=== PATIENT | female | born 2000 | race Caucasian/White ===

== ENCOUNTER → 2019-07-22 08:33 | Outpatient (CLI) | payer BC, SELFPAY ==
--- NOTE | 2019-07-22 08:42 | US_ITS ---
PROCEDURE: US GALLBLADDER CLINICAL INDICATION: ACUTE CHOLECYSTITIS COMPARISON: CT ABDOMEN PELVIS W CON from 07/12/2019 FINDINGS: Pancreas: Unremarkable/Not well seen Liver: Unremarkable. There is appropriate direction of blood flow within a non dilated portal vein. Right kidney: Unremarkable appearing. No hydronephrosis. Gallbladder: The gallbladder is contracted with gallstones noted. There is mild gallbladder wall thickening measuring up to 4 mm. No pericholecystic fluid or biliary dilatation is evident. IMPRESSION: Cholelithiasis with contracted gallbladder and mild gallbladder wall thickening Dictated by: Gareth Cavazos MD 07/22/2019 09:56 Electronically signed by Gareth Cavazos MD in [place] 07/22/2019 09:56
== END ==
PROVIDERS: PCP Internal Medicine Adolescent Medicine; Visit Provider Internal Medicine Adolescent Medicine
DX: K81.0 Acute cholecystitis (principal)
CPT/HCPCS: 76705

== ENCOUNTER → 2019-07-22 11:24 | Outpatient (CLI) | payer BC, SELFPAY ==
[2019-07-22 12:10] LABS: Basophils # 0.1 K/mm3 (0-0.2); Basophils % 0.6 % (0.1-2.0); Eosinophils # 0.1 K/mm3 (0.0-0.4); Eosinophils % 1.5 % (0.1-12.0); Hematocrit 42.4 % (37.0-47.0); Hemoglobin 14.4 g/dL (12.2-16.2); Lymphocytes # 2.1 K/mm3 (0.7-4.5); Lymphocytes % 21.7 % (10-50); Mean Corpuscular HGB Conc 34.1 g/dL (31.8-35.4); Mean Corpuscular Hemoglobin 29.4 pg (27.0-31.2); Mean Corpuscular Volume 86.3 fl (81-99); Mean Platelet Volume 8.1 fl (7.4-10.4); Monocytes # 0.6 K/mm3 (0.1-1.0); Monocytes % 6.4 % (1.7-9.3); Neutrophils # 6.8 K/mm3 (1.8-7.8); Neutrophils % 69.8 % (37.0-80.0); Platelet Count 241 K/mm3 (142-424); Red Blood Count 4.91 M/mm3 (4.20-5.40); White Blood Count 9.7 K/mm3 (4.5-13.0)
[2019-07-22 13:20] LABS: HCG Qualitative, Serum Negative (Negative)
== END ==
PROVIDERS: Visit Provider Surgery
DX: Z01.818 Encounter for other preprocedural examination (principal); K82.9 Disease of gallbladder, unspecified
CPT/HCPCS: 36415; 84703; 85025

== ENCOUNTER 2021-12-24 14:14 | Emergency (ER) | payer SELFPAY ==
[2021-12-24 15:00] VITALS: BP 110/71; PULSE 89; RESP 19; TEMP 36.9; O2SAT 96; BMI 37.9
--- NOTE | 2021-12-24 15:39 | HMH.EDUTC ---
[facility] [place] Disposition Clinical Impression: Viral upper respiratory tract infection with cough Disposition: Home, Self-Care Condition on Discharge: Good Instructions: Cough, DI for COVID-19 (Suspected or Confirmed ), Preventing the Spread of Coronavirus Discharge Instructions Additional Instructions: *Monitor Temp, Over the counter Motrin or Tylenol as directed/as needed Tylenol every 4 hours and Motrin every 6 hours (as long as your family doctor has told you that you can take it) for fever or pain. and straight to ER if unable to lower temp less than 101.0 after medication given *Warm salt water gargles may help to soothe the throat *Throat Lozenges *Warm fluids like tea with honey may help to soothe the throat *Sleep elevated *Humidifier/Vaporizer Follow up IMMEDIATELY for new or worsening symptoms or no Noticeable improvement over the next 48-72 hours. 911 for difficulty breathing or swallowing You were tested for today for COVID19 your test result should be back in the next 24-48 hours, you may Check your results on the [facility] My Health portal Make sure to take your Vitamins Vit. C Vit D and Zinc if you can take them Referrals: Beltran Hernandez MD [Primary Care Provider] - As needed Time of Disposition: 15:41 Medical Decision Making - Jaya Inquiry Pt receiving controlled substance: No Jaya was queried for this patient: No Vital Signs: 12/24/21 15:00 Temperature 98.5 F Temperature Source Oral Pulse Rate [Right Brachial] 89 Respiratory Rate 19 Blood Pressure [Right Arm] 110/71 Blood Pressure Mean [Right Arm] 84 Blood Pressure Source [Right Arm] Automatic Cuff Blood Pressure Position [Right Arm] Sitting 02 Sat by Pulse Oximetry 96 Oxygen Delivery Method Room Air Orders (Tests/Meds): ORDERS Category Date Time Status Covid-19 Nasal PCR ([facility]) Routine Lab 12/24/21 14:50 Received [facility] [place] HPI - General Stated complaint: covid test, body aches, cough, congestion Time Seen by Provider: 12/24/21 15:39 Mode of Arrival: Ambulatory Source of Information: Patient Limitations: No Limitations Description of Symptoms (Recalled from Triage Doc. by RN): PATIENT C/O COUGH, BODY ACHES, CONGESTION, AND FATIGUE X 2 DAYS HEENT Symptoms (Recalled from RN notes): Yes Resp Symptoms (Recalled from RN notes): Yes Skin Symptoms (Recalled from RN notes): No MS Symptoms (Recalled from RN notes): No Functional Status (Recalled from RN notes): WNL - History of Present Illness Provider Complaint: Patient states she has been around her boyfriend that is sick too States that she has been having body aches, chills, fever and fatigue so she wanted to come in and get tested for COVID - Related Data Previous Rx's Medication Instructions Recorded Hydrocod/Acet 5/325 mg [[place] 1 - 2 tab PO Q6HP PRN #23 tab 07/24/19 5/325mg tablet] Allergies Allergy/AdvReac Type Severity Reaction Status Date / Time Sulfa (Sulfonamide Allergy Verified 07/24/19 09:47 Antibiotics) - Worker's Comp Is this a Worker's Comp case?: No [facility] History - Hepatitis A Screen Attestation statement:: This patient has been screened for Hepatitis A risk factors. I have reviewed the patient's past medical history: Yes Medical History: Denies:: Cancer, Diabetes Mellitus Type 1, Diabetes Mellitus Type 2, Internal Pacemaker, MRSA, Seizures Other Medical History: Denies: Blood Transfusion Reaction Comment: obesity, Other Surgeries: Yes: No Previous Surgery. 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
[2021-12-24 15:43] VITALS: BP 110/71; PULSE 89; RESP 19; TEMP 36.9; O2SAT 96
== END 2021-12-24 15:46 | disposition home or self-care (01) ==
PROVIDERS: Emergency Provider Nurse Practitioner; PCP Internal Medicine Adolescent Medicine
DX: U07.1 COVID-19 (principal); F17.210 Nicotine dependence, cigarettes, uncomplicated
CPT/HCPCS: 99212; C9803; G0463; U0003; U0005

== ENCOUNTER 2023-03-20 04:28 | Emergency (ER) | payer SELFPAY ==
[2023-03-20 04:29] VITALS: BP 127/84; PULSE 78; RESP 16; TEMP 36.5; O2SAT 98; BMI 32.8
[2023-03-20 04:43] VITALS: BP 126/80
[2023-03-20 04:44] LABS: Microscopic, Urine URINE MICROSCOPIC (MICROSCOPIC)
--- NOTE | 2023-03-20 04:46 | HMH.EDGENADL ---
Discharge Plan Disposition Patient Disposition: Home, Self-Care Chief Complaint: Abdominal Pain Referrals Follow up/Referrals: Beltran Hernandez MD [Primary Care Provider] - See instructions Activity Restrictions/Add. Instructions Additional Instructions/Restrictions: Call your family doctor to establish care for this visit to the emergency department and schedule follow-up within 48 hours to ensure improvement. If you have any worsening of your condition or any other concerning signs or symptoms, return to the emergency department or your primary care doctor for further evaluation. Take Tylenol 1000 mg every 6 hours (4 times daily) and ibuprofen 400 mg every 6 hours (4 times daily) as needed with food and water to prevent GI upset and kidney damage. Clinical Impressions Clinical Impression: Abdominal pain Instructions Patient Instructions: DI for Acute Abdominal Pain Discharge ED Provider: Patrick Berumen General Adult HPI General Chief complaint: Abdominal Pain Stated complaint: Stomach pain no vomiting Time Seen by Provider: 03/20/23 04:30 Mode of Arrival: Ambulatory Source of Information: Patient Limitations: No Limitations Description of Symptoms (Recalled from ER Triage Doc. by RN): pt c/o LLQ abdominal pain, onset 03/19 @ 2330, LMP 2 weeks ago, denies possibility of being History of Present Illness HPI narrative: 22-year-old female history of cholecystectomy presenting with abdominal pain. Patient states abdominal pain started right around midnight when she was in the car getting food. Sudden onset, left lower quadrant, stabbing, intermittent. Radiates upward toward her left ribs. No nausea or vomiting, fevers or chills, overlying skin changes, dysuria, hematuria, other urinary symptoms, vaginal discharge or bleeding. Last menstrual period was 2 weeks prior and was normal for her. Last bowel movement yesterday, 03/19 and normal for her as well. Related Data Allergies Allergy/AdvReac Type Severity Reaction Status Date / Time Sulfa (Sulfonamide Allergy Verified 03/20/23 04:48 Antibiotics) [facility] Disclaimer: The information contained in this section may have been updated after the patient was seen, as this information can be updated by other users. Social History Smoking Status: Never smoker alcohol intake: never substance use type: marijuana current occupational status: unemployed Travel in the last 8 weeks: None housing: house caffeine: No ROS Obtained: Yes All systems reviewed & no additional complaints except as documented Physical Exam General General appearance: alert, in no apparent distress and obese Head Head exam: atraumatic and normocephalic Eye Eye exam: Present normal appearance, PERRL and EOMI ENT ENT exam: Present mucous membranes moist Neck Neck exam: Present normal inspection, full ROM and trachea midline Respiratory Respiratory exam: Absent respiratory distress, wheezes, stridor, accessory muscle use or prolonged expiratory phase Cardiovascular Cardiovascular exam: Present regular rate and normal rhythm Abdominal Exam Abdominal exam: Present soft; Absent distention, tenderness, guarding, rebound, rigidity or normal bowel sounds Neurological Exam Neurological exam: Present alert, oriented X3, CN II-XII intact and normal gait; Absent motor sensory deficit Skin Skin exam: Present warm and dry; Absent diaphoresis or erythema Medical Decision Making Medical Records Medical records reviewed: Yes I reviewed the patient's medical records. Jaya Inquiry Pt receiving controlled substance: No Jaya was queried for this patient: No Vital Signs: 03/20/23 04:29 03/20/23 04:43 Temperature 97.7 F Temperature Source Oral Pulse Rate [Left Radial] 78 Respiratory Rate 16 Blood Pressure 126/80 Blood Pressure [Right Arm] 127/84 Blood Pressure Mean [Right Arm] 98 Blood Pressure Source [Right Arm] Automatic Cuff Blood Pressure Position [Rig
[2023-03-20 04:52] LABS: Appearance,Urine CLEAR (Clear); Blood, Urine Negative (Negative); Color,Urine YELLOW (Yellow); Glucose,Urine (UA) Negative (Negative); Ketones,Urine Negative (Negative); Leukocyte Esterase,Urine Negative (Negative); Nitrate,Urine Negative (Negative); PH,Urine 5.5 (5.0-8.5); Protein,Urine Negative (Negative); Specific Gravity, Urine >= 1.030 (1.005-1.030); Urobilinogen,Urine 0.2 EU/dl (0.2)
[2023-03-20 04:53] LABS: Bacteria,Urine Trace /lpf; Bilirubin,Urine Negative (Negative); Mucus,Urine Trace /lpf; RBC,Urine Occasional #/hpf (0-3); Squamous Epithelial Cell,Urine Occasional #/hpf (0-5); WBC,Urine Occasional #/hpf (0-3)
[2023-03-20 05:10] LABS: Basophils # 0.1 K/mm3 (0-0.2); Basophils % 0.6 % (0.1-2.0); Eosinophils # 0.3 K/mm3 (0.0-0.4); Eosinophils % 1.8 % (0.1-12.0); Hematocrit 43.1 % (37.0-47.0); Hemoglobin 15.1 g/dL (12.2-16.2); Lymphocytes # 4.9 K/mm3 (0.7-4.5); Lymphocytes % 28.3 % (10-50); Mean Corpuscular Hemoglobin 31.2 pg (27.0-31.2); Mean Corpuscular Volume 89.2 fl (81-99); Mean Platelet Volume 8.5 fl (7.4-10.4); Monocytes # 0.9 K/mm3 (0.1-1.0); Monocytes % 5.3 % (1.7-9.3); Neutrophils # 11.1 K/mm3 (1.8-7.8); Neutrophils % 64.1 % (37.0-80.0); Platelet Count 236 K/mm3 (142-424); Red Blood Count 4.83 M/mm3 (4.20-5.40); Red Cell Distribution Width 14.1 % (11.5-17.5); White Blood Count 17.2 K/mm3 (4.8-10.8)
--- NOTE | 2023-03-20 05:20 | PC.NURSE ---
Sit visit with pt after medication administration, denies needs at this time, bed lowest position, call light in reach, no acute distress noted or reported.
[2023-03-20 05:24] LABS: Alanine Aminotransferase 32 U/L (12-78); Albumin Level 4.7 g/dl (3.5-5.0); Albumin/Globulin Ratio 1.3 (1.1-1.8); Alkaline Phosphatase 84 U/L (38-126); Aspartate Amino Transferase 39 U/L (14-36); Bilirubin,Total 0.5 mg/dl (0.2-1.3); Blood Urea Nitrogen 9 mg/dl (7-17); Calcium 9.5 mg/dl (8.4-10.2); Carbon Dioxide 27 mmol/L (22.0-30.0); Chloride 104 mmol/L (98-107); Creatinine Clearance Estimated 166 mL/min (50-200); Estimated Glomerular Filt Rate 104 ml/min (>60); GFR (African American) 125 ML/MIN (>60); Globulin 3.5 g/dL (1.3-3.2); Glucose 97 mg/dl (74-100); Lipase 66 U/L (23-300); Sodium 141 mmol/L (136-145); Total Protein,Serum 8.2 g/dl (6.3-8.2)
[2023-03-20 05:28] LABS: MANUAL DIFFERENTIAL MANUAL DIFFERENTIAL (MANUAL DIFF)
--- NOTE | 2023-03-20 05:37 | US_ITS ---
PROCEDURE INFORMATION: Exam: US Pelvis, Transvaginal Exam date and time: 03/20/2023 6:22 AM Age: 22 years old Clinical indication: Pelvic pain; Additional info: Acute llq abd pain, stabbing LABS AND CLINICAL REPORTS: Last menstrual period start date: 03/03/2023 TECHNIQUE: Imaging protocol: Real-time transvaginal pelvic ultrasound with image documentation. Transvaginal imaging was used for better evaluation of the endometrium, adnexa, and/or cervix. COMPARISON: CT ABDOMEN PELVIS W CON 07/12/2019 1:40 AM FINDINGS: Uterus: Uterus has normal size and configuration measuring 6.2 x 2.7 x 3.2 cm. Endometrial stripe appears normal and measures 4.2 mm in thickness. Right ovary/adnexa: Right ovary measures 2.8 x 2.7 x 1.4 cm and demonstrates vascular flow. Tiny right ovarian follicles. Left ovary/adnexa: Left ovary measures 3.2 x 1.9 x 1.6 cm and demonstrates vascular flow. Approximately 1 cm left ovarian dominant follicle or cyst. Intraperitoneal space: No free pelvic fluid. IMPRESSION: 1. No evidence of ovarian torsion. 2. Approximately 1 cm left ovarian dominant follicle or cyst.
--- NOTE | 2023-03-20 05:37 | PC.NURSE ---
notified rad of ultrasound order
[2023-03-20 05:44] LABS: HCG,Quantitative < 2 mIU/ml (0-5.42)
--- NOTE | 2023-03-20 06:00 | PC.NURSE ---
Sit visit with pt, advised that US tech has been called in for US study and just awaiting arrival, pt verbalized understanding, denies needs at this time, no acute distress noted/reported.
[2023-03-20 06:11] LABS: Lactic Acid 1.3 mmol/L (0.7-2.1)
[2023-03-20 06:41] LABS: Eosinophils % 3 % (0-3); Lymphocytes % 28 % (10-50); Monocytes % 6 % (2-9); Neutrophils % 53 % (42-76); Total Cells Counted 100
[2023-03-20 06:46] LABS: Microcytosis 1+; Platelet Estimate Normal; RBC Morphology Normal
[2023-03-20 07:04] VITALS: BP 122/84; PULSE 68; RESP 16; TEMP 36.7; O2SAT 99
== END 2023-03-20 07:05 | disposition home or self-care (01) ==
PROVIDERS: Emergency Provider Emergency Medicine; PCP Internal Medicine Adolescent Medicine
DX: R10.32 Left lower quadrant pain (principal)
CPT/HCPCS: 76830; 80053; 81001; 83605; 83690; 84702; 85007; 85025; 87040; 96374; 99284